=== PATIENT | female | born 1955 | race Caucasian/White ===

== ENCOUNTER 2022-04-28 06:51 | Day surgery (SDC) | payer MEDICARE, OTHER ==
[2022-04-28] MEDS ORDERED: Propofol 200 MG/20 ML SDV ONE (07:13)
[2022-04-28] MEDS ORDERED: Midazolam 1 MG/ML 2 ML SDV ONE (07:13)
[2022-04-28] MEDS ORDERED: fentaNYL 100 MCG/2 ML SDV ONE (07:13)
[2022-04-28] MEDS ORDERED: Lactated Ringers 1,000 ML IV SCH (07:30)
== END 2022-04-28 09:30 | disposition home or self-care (01) ==
LOC: JP.SDS 06:51
PROVIDERS: ATTEND Family Medicine
DX: Z12.11 Encounter for screening for malignant neoplasm of colon (principal); D12.4 Benign neoplasm of descending colon; J45.909 Unspecified asthma, uncomplicated; Z98.890 Other specified postprocedural states
CPT/HCPCS: 45385; 88305; J2250; J2704; J3010; J7120

== ENCOUNTER → 2022-08-24 | Day surgery (SDC) | payer MEDICARE, OTHER | LOC: JP.SDS 06:00 | PROVIDERS: ATTEND Ophthalmology | DX: H26.9 Unspecified cataract (principal); H54.7 Unspecified visual loss; J45.909 Unspecified asthma, uncomplicated; Z79.899 Other long term (current) drug therapy ==

== ENCOUNTER 2022-09-07 06:49 | Day surgery (SDC) | payer MEDICARE, OTHER ==
[2022-09-07] MEDS: Sodium Chloride 0.9% 10 ML Syringe FLUSH PRN (07:36)
== END 2022-09-07 08:39 | disposition home or self-care (01) ==
LOC: JP.SDS 06:49
PROVIDERS: ATTEND Ophthalmology
DX: H25.11 Age-related nuclear cataract, right eye (principal)
CPT/HCPCS: 66984; J3490; V2632